=== PATIENT | male | born 1940 | race Caucasian/White ===

== ENCOUNTER 2021-04-10 11:53 | Emergency (ER) | payer MEDICARE, OTHER ==
[~2021-04-10] VITALS: Ht 170.2 cm; Wt 90.7 kg
[2021-04-10 14:05] LABS: ABSOLUTE NEUTROPHILS 6.2 thou/uL (1.4-8.2); BASOPHILS 0.4 % (0.0-2.0); EOSINOPHILS 3.2 % (0.0-3.0); HEMATOCRIT 38.6 % (42.0-52.0); LYMPHOCYTES 11.2 % (24.0-44.0); MCH 31.2 pg (26.0-34.0); MCHC 33.6 g/dL (28.0-37.0); MONOCYTES 7.2 % (1.0-8.0); PLATELET COUNT 211 thou/uL (150-400); RBC 4.15 mil/uL (4.50-6.00); RDW 15.3 % (10.5-14.5)
[2021-04-10 14:13] LABS: CALCIUM 9.5 mg/dL (8.5-10.1); CREATININE 1.1 mg/dL (0.7-1.3); POTASSIUM 4.8 mmol/L (3.5-5.1)
[2021-04-10] MEDS ORDERED: ALEVE220 MG PO (14:21)
[2021-04-10] MEDS ORDERED: AMLODIPINE BESY10 MG PO (14:21)
[2021-04-10] MEDS ORDERED: COMBIGAN EYE DR10 ML EA. EYE (14:22)
[2021-04-10] MEDS ORDERED: CLARITIN10 M3 PO (14:22)
[2021-04-10] MEDS ORDERED: DEPAKOTE ER500 M1 PO (14:24)
[2021-04-10] MEDS ORDERED: DETROL2 MG PO (14:24)
[2021-04-10] MEDS ORDERED: AMARYL2 M1 PO (14:25)
[2021-04-10] MEDS ORDERED: DORZOLAMIDE 2%10 ML LT. EYE (14:25)
[2021-04-10] MEDS ORDERED: LOSARTAN POTAS100 MG PO (14:27)
[2021-04-10] MEDS ORDERED: IPRATROPIUM BRO30 ML NASAL (14:27)
[2021-04-10] MEDS ORDERED: METFORMIN HCL1000 M1 PO (14:28)
[2021-04-10] MEDS ORDERED: LUMIGAN2.5 M1 EA. EYE (14:28)
[2021-04-10] MEDS ORDERED: SUPER THERAVIT1 EACH PO (14:29)
[2021-04-10] MEDS ORDERED: LOPRESSOR50 MG PO (14:29)
[2021-04-10] MEDS ORDERED: TYLENOL325 MG PO (14:30)
[2021-04-10] MEDS ORDERED: SEROQUEL 50 MG50 MG PO (14:30)
[2021-04-10] MEDS ORDERED: VITAMIN D3250 MCG PO (14:32)
[2021-04-10 14:37] LABS: URINE BILIRUBIN NEGATIVE (Negative); URINE BLOOD TRACE (Negative); URINE CLARITY CLEAR; URINE COLOR YELLOW; URINE GLUCOSE-RANDOM* NEGATIVE (Negative); URINE KETONES NEGATIVE (Negative); URINE LEUKOCYTES-REFLEX NEGATIVE (Negative); URINE NITRITE-REFLEX NEGATIVE (Negative); URINE PROTEIN (DIPSTICK) 1+ (Negative); URINE SPECIFIC GRAVITY 1.015 (1.005-1.035); URINE UROBILINOGEN 0.2 E.U./dl (0.2-1.0)
[2021-04-10 14:55] LABS: SQUAMOUS None Seen /LPF (0-3)
[2021-04-10 14:56] LABS: URINE RBC 1-2 Rare /HPF (NONE SEEN); URINE WBC-REFLEX 0-5 Rare /HPF (0-5)
[2021-04-10 14:57] LABS: BACTERIA-REFLEX None Seen /HPF (None Seen); CASTS None Seen /LPF (None Seen); CRYSTALS None Seen /LPF (None Seen)
[2021-04-10 17:05] VITALS: BP 175/81
== END 2021-04-10 17:25 | disposition home or self-care (01) ==
LOC: ER 11:53
PROVIDERS: Nurse Practitioner; Student in an Organized Health Care Education/Training Program
DX: U07.1 COVID-19 (principal); F91.1 Conduct disorder, childhood-onset type; E78.5 Hyperlipidemia, unspecified; I12.9 Hypertensive chronic kidney disease with stage 1 through stage 4 chronic kidney disease, or unspecified chronic kidney disease; E11.22 Type 2 diabetes mellitus with diabetic chronic kidney disease; N18.9 Chronic kidney disease, unspecified; Z79.899 Other long term (current) drug therapy

== ENCOUNTER 2021-04-24 17:58 | Emergency (ER) | payer MEDICARE, OTHER ==
[~2021-04-24] VITALS: Ht 160 cm; Wt 86.2 kg
[~2021-04-24 17:58] MED LIST: ALEVE220 MG PO; AMARYL2 M1 PO; AMLODIPINE BESY10 MG PO; CLARITIN10 M3 PO; COMBIGAN EYE DR10 ML EA. EYE; DEPAKOTE ER500 M1 PO; DETROL2 MG PO; DORZOLAMIDE 2%10 ML LT. EYE; IPRATROPIUM BRO30 ML NASAL; LOPRESSOR50 MG PO; LOSARTAN POTAS100 MG PO; LUMIGAN2.5 M1 EA. EYE; METFORMIN HCL1000 M1 PO; SEROQUEL 50 MG50 MG PO; SUPER THERAVIT1 EACH PO; TYLENOL325 MG PO; VITAMIN D3250 MCG PO
[2021-04-24 18:38] LABS: HEMATOCRIT 37.3 % (42.0-52.0); HEMOGLOBIN 12.3 gm/dL (14.0-18.0); MCHC 32.9 g/dL (28.0-37.0); MCV 94.4 fL (80.0-100.0); RBC 3.95 mil/uL (4.50-6.00); RDW 15.7 % (10.5-14.5); WBC 7.6 thou/uL (4.0-11.0)
[2021-04-24 18:48] LABS: CALCIUM 9.4 mg/dL (8.5-10.1); CREATININE 1.1 mg/dL (0.7-1.3); POTASSIUM 4.4 mmol/L (3.5-5.1)
[2021-04-24 18:49] LABS: URINE BILIRUBIN NEGATIVE (Negative); URINE BLOOD NEGATIVE (Negative); URINE CLARITY CLEAR; URINE COLOR YELLOW; URINE GLUCOSE-RANDOM* NEGATIVE (Negative); URINE KETONES NEGATIVE (Negative); URINE LEUKOCYTES-REFLEX NEGATIVE (Negative); URINE NITRITE-REFLEX NEGATIVE (Negative); URINE PROTEIN (DIPSTICK) TRACE (Negative); URINE UROBILINOGEN 0.2 E.U./dl (0.2-1.0)
[2021-04-24 21:08] VITALS: BP 165/63
== END 2021-04-24 21:09 ==
LOC: ER 17:58
PROVIDERS: Nurse Practitioner Family
DX: F29 Unspecified psychosis not due to a substance or known physiological condition (principal); E78.5 Hyperlipidemia, unspecified; I25.10 Atherosclerotic heart disease of native coronary artery without angina pectoris; I12.9 Hypertensive chronic kidney disease with stage 1 through stage 4 chronic kidney disease, or unspecified chronic kidney disease; E11.22 Type 2 diabetes mellitus with diabetic chronic kidney disease; N18.9 Chronic kidney disease, unspecified; Z79.84 Long term (current) use of oral hypoglycemic drugs; Z79.891 Long term (current) use of opiate analgesic; Z79.899 Other long term (current) drug therapy

== ENCOUNTER 2021-04-24 21:43 | Inpatient (IN) | payer MEDICARE, OTHER ==
[~2021-04-24] VITALS: Ht 172.7 cm; Wt 77.3 kg
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
[2021-04-25] VITALS: BP 143/68
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
[2021-04-25 06:16] LABS: CHOLESTEROL 201 mg/dL (<200); HDL CHOLESTEROL 28 mg/dL (>40); LDL CHOLESTEROL 150 mg/dL (<100); TC:HDL 7.2 Ratio (Not establshd); TRIGLYCERIDE 115 mg/dL (<150); VLDL 23 mg/dL (<40)
[2021-04-25 06:22] LABS: SERUM ASSESSMENT Clear
[2021-04-25 09:05] VITALS: BP 136/64
[2021-04-25 09:55] VITALS: BP 154/115
--- NOTE | 2021-04-25 10:10 | NUR ---
Pt is new admit [facility]. He presented earlier in the month r/t [facility] admission, but tested positive for covid and returned to his NH until isolation period was up. Returned to ED for [facility] admit. NH reports inappropriate behaviors and aggression. Hx DMII, on metformin and glimepiride. Vit D and MVI/min in place. On 2gm Na diet, diet at [place] reports "carb counting and low sodium." Will add CCHO to diet order. Intakes appear to be good, with no reports of recent weight or appetite changes on intake. Very little information yet this admit, no intakes recorded yet. Current weight/BMI appropriate. Will add glucerna at lunch daily until intake trends can be determined. Low nutrition risk with interventions intitiated.
--- NOTE | 2021-04-25 14:14 | NUR ---
Assumed pt care this am from overnight shift. Pt presented alert and oriented 4x at this time, though was [place] and needed to have questions repeated for him in order to be able to understand them. Pt was pleasant and calm when approached by staff and took all medications and tolerated them well. Pt denied any depression and anxiety at this time, stating that he felt fine. Client stated "I'm ok right now" when asked if he had any hallucinations. Client denied si/hi. Client denied pain when asked. When asked if he needed anythign further, client stated ice water, which staff brought to him. After this, client stated that he was comfortable and did not need anything at this time, stating that he "wants to stay in the room." Lung sounds clear and diminished. Bowel sounds present. Last BM 04/24/21. Noon dose of seroquel given without issue. No further concerns at this time.
[2021-04-25 16:03] VITALS: BP 169/69
[2021-04-25 19:35] VITALS: BP 168/68
[2021-04-25 19:43] VITALS: BP 168/68
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
--- NOTE | 2021-04-26 05:01 | NUR ---
PATIENT CARE WAS RESUMED AT 1900. HE WAS IN HIS ROOM SITTING ON THE BED. ALERT AND ABLE TO MAKE HIS NEEDS KNOWN. HE DENIES PAINS /SI/AVH/HI . LUNGS ARE CLEAR BS ACTIVE X4 QUADS. HE IS CONTINIET OF BOWEL AND BLADDER.HE AMBULAES AND SWALLOWS HIS MEDS WHOLE. BED IS LOW, LOCKED ANDQ12 MINUTES CHECK IS ACTIVE. CONTINUE CARE
[2021-04-26 07:08] LABS: GLYCOHEMOGLOBIN (HGB A1C) 6.5 % (4.8-5.6)
--- NOTE | 2021-04-26 08:39 | NUR ---
Phone call to [facility] for additional information regarding patient - Voice message left for Chelsey ALVAREZ.
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
[2021-04-26 10:07] VITALS: BP 152/47
--- NOTE | 2021-04-26 11:29 | NUR ---
Alert and orientated X3. Calm, cooperative and compliant. Denies SI/HI. Very resistant to using walker stating "You are wasting your time!" when encouraged to use it. States he doesn't want to fall either but he is not going to use walker. Isolating to room, refused to attend group. Ate 100% of breakfast. Breath sounds clear. Reg HR auscultated. Color pink with brisk capillary refill and palpable peripheral pulses. Independent with voiding. Active bowel sounds over soft, rounded abdomen. Ambulates with slow gait. Currently in room without s/o distress.
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
[2021-04-26 16:56] VITALS: BP 174/80
[2021-04-26 19:02] VITALS: BP 138/65
--- NOTE | 2021-04-26 22:49 | NUR ---
At onset of shift mgr pt was sitting in a chair in the hallway across from the nurses station. This shift was calm, pleasant and cooperative. Pt was up ad jeancarlos with constricted affect. Pt was compliant with medications and vital signs. Pt spent free time mostly withdrawn from peers, but was talkative with staff. Pt denied psych symptoms. When talking with RN pt stated he thinks the other patients on the unit have different needs than him. Pt stated he is ready to return home. Pt is a low fall risk. Will continue to monitor.
--- NOTE | 2021-04-27 10:16 | NUR ---
Alert and orientated to person and place but not to time. Denies SI/HI. Reg HR auscultated. Color pink with brisk capillary refill and palpable peripheral pulses. Breath sounds clear. Incontinent of brown, unformed stool this AM. Active bowel sounds over soft, rounded abdomen. Ambulates with slightly unsteady gait. Refuses to use walker. Attended group this AM with encouragement and participated. No s/o distress.
[2021-04-27 10:57] VITALS: BP 163/64
[2021-04-27 16:30] VITALS: BP 118/50
[2021-04-27 19:06] VITALS: BP 115/64
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
[2021-04-28 08:50] VITALS: BP 146/74
[2021-04-28 09:15] VITALS: BP 146/74
--- NOTE | 2021-04-28 11:35 | NUR ---
Assumed pt care this am from overnight shift. Pt was in bed resting at this time, and presented alert and oriented to self, situation, and place. Pt was in a pleasant and cooperative mood, and took all medication whole without resistance. Pt given hearing aides at this time and repositioned to help with breakfast as pt had not yet eaten. Pt denied depression and anixety. Pt denied hallucinations. Pt also denied any si/hi at this time. Pt denied any pain. Pt stated that he did not have any goals for today and that he was going to rest in bed for a while for eating breakfast. Lung sounds clear and diminished. Bowel sounds activel. Last BM 04/28/21. No further concerns at this time.
--- NOTE | 2021-04-28 16:33 | NUR ---
Updates sent to [facility]
[2021-04-28 16:52] VITALS: BP 115/48
[2021-04-28 19:35] VITALS: BP 138/54
[2021-04-28 19:40] VITALS: BP 138/54
--- NOTE | 2021-04-28 20:04 | NUR ---
Assumed care on 04/28/21 @ 1900, Seated in a chair at a table in the day room, [employer] football game on TV, reports is watching the game. Pleasant affect noted, hard of hearing, Makes a remark having to do with a [place]. HRRR, Lungs CTA bilat, ABD round with Normoactive BS x 4Q. Will continue to monitor for safety and comfort as per unit protocol.
[2021-04-29 09:07] VITALS: BP 157/73
[2021-04-29 09:30] VITALS: BP 157/73
--- NOTE | 2021-04-29 11:10 | NUR ---
RESUMMED CARE FROM OVERNIGHT SHIFT THIS AM, PATIENT IN ROOM LYING QUIET. I GOT PATIENT UP WE DID HYGIENE AND ESCORTED PATIENT TO DAY ROOM FOR BREAKFAST. PATIENT ATE WELL TOOK MEDICATION WITHOUT INCIDENCE, PATIENT ALERT ORIENTED TO SELF AND SITUATION AND DATE. PATIENTS ABDOMEN SOFT BOWEL SOUNDS PRESENT PATIENTS LUNGS CLEAR. PATIENT QUIET DOES NOT TALK MUCH DOES HAVE HEARING AIDS WHICH SOMETIMES FALL OUT. I PLACED THEM IN THE MEDICATION ROOM SO WE DON'T LOSE THEM. PATIENT DENIES SI/HI/AH/VH AT PRESENT PATIENT DOES ATTEND GROUPS BUT CANNOT HEAR VERY WELL. PATIENT HAS NOT DISPLAYED ANY BEHAVIORS WILL CONTINUE TO MONITOR PATIENT FOR SAFETY AND BEHAVIORS.
--- NOTE | 2021-04-29 19:22 | NUR ---
Assumed care on 04/29/21 @ 1900, A&Ox3, unable to give date, Hard of Hearing, Denies SI/HI and reports wants to go back to [facility] facility. Ambulating throughout the mileu, reports has a H.A. and wants Tylenol with bedtime medications. Will continue to monitor for comfort and safety as per unit protocol.
[2021-04-29 19:40] VITALS: BP 142/56
[2021-04-29 19:54] VITALS: BP 142/56
[2021-04-30 09:05] VITALS: BP 143/60
--- NOTE | 2021-04-30 10:46 | NUR ---
PATIENT CARE ASSUMED AT 0700 - PLEASANTLY CONFUSED. COULD NOT STATE DAY OF WEEK WHEN QUESTIONED. WAS PLEASED TO KNOW HE WAS GOING [facility] TO [facility]. VERY HARD OF HEARING - BILATERAL HEARING AIDS HERE BUT NEED BATTERIES. COMPLIANT WITH MEDICTAIONS - CALM AND AGREEABLE. CHOSE TO EAT IN HIS ROOM BREAKFAST. COMMPLETED ALMOST 100 PERCENT OF HIS MEAL. AMBUALTES AROUND INDEPENDENTLY SEMI STEADY - NEEDS TO BE REDIRECTED AT TIMES SINCE HE HAS TENDENCY OF TOUCHING PEERS OR STAFF TO GAIN ATTENTION. EASILY REDIRECTED - CONTINENT AND ATTENDS TO OWN BATHROOM NEEDS. WILL CONTINUE TO MONITOR PATIENT FOR SAFETY AND ADDRESS ANY CONCERNS THAT MAY ARRISE.
[2021-04-30 19:14] VITALS: BP 141/74
[2021-04-30 19:40] VITALS: BP 141/74
--- NOTE | 2021-04-30 22:14 | NUR ---
Assumed care on 04/30/21 @ 1900, ambulating thru the mileu ad jeancarlos, cooperated with assessment, HRRR, Lungs CTA and cough noted. ABD N x 4Q. Incontinent and had a BM today on 04/30. A&Ox4 Hard of hearing, Denies SI/HI and Hallucinaitons. PRN Tylenol provided for Back pain rated @ 6/10. Takes meds whole with water, compliant with medication administration. Sudhakar lcontinue to monitor for comfort and safety as per unit protocol.
[2021-05-01 08:48] VITALS: BP 158/86
--- NOTE | 2021-05-01 10:39 | NUR ---
Nutrition followup: pt eating 75-100% of meals and enjoys glucerna, would like to continue supplement daily. BG controlled, A1C 6.5. Stable weights. BM 04/28. Low nutrition risk.
--- NOTE | 2021-05-01 10:48 | NUR ---
Updates sent to [facility]
[2021-05-01] MEDS ORDERED: DIVALPROEX SOD500 M1 PO (12:53)
[2021-05-01] MEDS ORDERED: TRADJENTA5 MG PO (12:54)
[2021-05-01] MEDS ORDERED: GLIMEPIRIDE1 MG PO (12:54)
--- NOTE | 2021-05-01 13:31 | NUR ---
PATIENT WAS IN BED ASLEEP WHEN CARE ASSUMED. WHEN AWAKEN, HE AMBULATES TO DAYROOM FOR BREAKFAST. PARTIEDWARD TOOK ALL MORNING MEDICATION WHOLE WITHOUT DIFFICULTY. PATIENT IS ALERT AND ORIENTED X 1-2, HE IS FORGETFUL, AND INTERMITTENT CONFUSION NOTED. PATIENT HAS BEEN CALM, COOPERATIVE WITH CARE, HE AMBULATES WITH SLOW SLIGHTLY UNSTEADY GAIT. PATIENT DENIES SUICIDAL/HOMICIDAL IDEATION, UNABLE TO APPROPRIATELY RESPOND TO FURTHER ASSESSMENT QUESTIONS DUE TO COGNITIVE IMPAIRMENT. PATIENT IS HARD OF HEARING, AFFECT IS BRIGHT, MOOD IS EUTHYMIC. NO SIGN OF ACUTE DISTRESS NOTED AT THIS TIME. PATIENT IS DISCHARGING BACK TO [facility] TODAY, WILL CONTINUE TO MONITOR.
--- NOTE | 2021-05-01 16:18 | NUR ---
Discharged fax to [facility]
== END 2021-05-01 16:35 | DRG 886 ==
LOC: SBH 21:43
PROVIDERS: Nurse Practitioner; ADMIT Psychiatry & Neurology Psychiatry; ATTEND Psychiatry & Neurology Psychiatry
DX: F63.9 Impulse disorder, unspecified (principal); F03.91 Unspecified dementia, unspecified severity, with behavioral disturbance; F01.51 Vascular dementia, unspecified severity, with behavioral disturbance; E78.5 Hyperlipidemia, unspecified; I25.10 Atherosclerotic heart disease of native coronary artery without angina pectoris; N40.0 Benign prostatic hyperplasia without lower urinary tract symptoms; N18.2 Chronic kidney disease, stage 2 (mild); R53.81 Other malaise; E11.22 Type 2 diabetes mellitus with diabetic chronic kidney disease; I12.9 Hypertensive chronic kidney disease with stage 1 through stage 4 chronic kidney disease, or unspecified chronic kidney disease; R45.1 Restlessness and agitation; E53.8 Deficiency of other specified B group vitamins; Z86.16 Personal history of COVID-19; Z98.49 Cataract extraction status, unspecified eye
CPT/HCPCS: 10880